=== PATIENT | male | born 1970 | race Two or more races ===

== ENCOUNTER 2024-12-18 10:52 | Inpatient (IN) | payer MEDICAID, OTHER ==
[~2024-12-18] VITALS: Ht 167.6 cm; Wt 96.7 kg
--- NOTE | 2024-12-18 11:16 | ED.PDOC ---
General HPI Comments HPI: Poor Historian. At home T-max 101.0. Patient did not take any antipyretics. 54y M who presents to the ED for chief complaint of urinary complaints. Pt has the following ED course; - pt states for the past 2 weeks, he has been having dysuria, fever and back pain and states last night, he noted blood in urine and came today for further evaluation - pt states 3 weeks prior, he was having generalized weakness and fever and states he went to urgent care for evaluation - pt states he was dx with UTI and placed on 1 week course of antibiotics - pt states he has finished his course of antibiotics and still having symptoms. - pt in the ED, noted to have heart rate of 117 and temp of 99.5 F - pt otherwise denies any other symptoms at this time past medical history: DM, HTN, HLD, thyroid past surgical history: R toes amputation medications: unknown allergies: nkda social history: denies tobacco use, denies Etoh use, denies drug use REVIEW OF SYSTEMS: CONSTITUTIONAL: Denies acute: diaphoresis, chills, HEAD: Denies acute: headache, photophobia Eyes: Denies acute: Double vision, vision loss, eye pain, eye discharge. EARS: Denies acute: tinnitus, hearing loss, ear discharge, ear pain, THROAT: Denies acute: sore throat, swelling, difficulty swallowing , pain with swallowing, change in voice. NECK: Denies acute: neck pain, neck swelling, stiff neck. HEART: Denies acute : chest pain, palpitations, LUNGS: Denies acute: SOB, wheezing, cough, hemoptysis ABDOMEN: Denies acute: abdominal pain, Nausea, Vomiting, diarrhea, melena , hematemesis, hematochezia SKIN: Denies acute: rash, redness, lesions, itchiness. EXTREMITIES: Denies acute: calf pain, numbness, tingling, weakness, denies pain in extremity. Neuro: Denies acute: focal neurological deficit, motor or sensory focal neurological deficit, tremors, seizure like activity, confusion, dizziness, change in mental status, loss of bowel or bladder function, cauda equina like symptoms. : Denies acute: flank pain, increase in urinary frequency. PSYCH: Denies acute: hallucination, suicidal ideation, homicidal ideation. PHYSICAL EXAM: General: no acute distress, awake and alert. Head: normocephalic, atraumatic. Neck: supple, trachea is midline, no swelling. Throat: Normal phonation. Eyes:, no erythema, no purulent discharge, no proptosis, no icterus. Heart: regular tachycardic, no significant murmur appreciated. Lungs: no apparent respiratory distress, Able to speak in full sentences. No wheezing, no rhonchi, no crackles. No stridors Clear to auscultation bilaterally. Abdomen: non tender to palpation, non distended, soft, no guarding, no rebound, + bowel sounds. Neuro: Awake, Alert, oriented to name, self, situation, follows commands GCS=15. Speech is normal. Skin: no petechia, no purpura, no cyanosis, slightly-pale, not jaundice. Lower extremities: --no - Pitting edema no deformity, no focal swelling, no calf TTP. Makes eye contact. moves all four extremities. Face: no apparent facial droop. No CVA tenderness to percussion bilaterally. Ambulating in the ED independently. No nuchal rigidity, Kernig's sign, Brudzinski's sign, no meningeal signs. ED COURSE: Chief Complaint: Urinary Time Seen by MD: 11:11 Reviewed notes: Nurses Notes, Allergies Allergies: Coded Allergies: NO KNOWN ALLERGIES (Unverified , 12/18/24) Home Meds Reported Medications Ferrous Sulfate (Ferosul) 325 Mg Tab, 1 TAB PO 12/18/24 Gabapentin (Gabapentin) 800 Mg Tab, 1 TAB PO TID 12/18/24 Aspirin (Aspirin Low Dose) 81 Mg Chw, 1 TAB PO DAILY 12/18/24 Cholecalciferol (VITAMIN D3) 5,000 Unit Cap, 1 CAP PO DAILY 12/18/24 Losartan Potassium (Losartan Potassium) 25 Mg Tab, 1 TAB PO DAILY 12/18/24 Levothyroxine Sodium (Levothyroxine Sodium) 175 Mcg Tab, 1 TAB PO DAILY 12/18/24 Cholecalciferol (Gnp D 1000) 1,000 Unit Cap, 1 CAP PO DAILY 12/18/24 Pantoprazole Sodium Sesquihydr (Pantoprazole Sodium) 40 Mg Tab, 1 TAB PO DAILY 12/18/24 Atorvastatin Calcium (ATORVASTATIN CALCIUM) 40 Mg Tab, 1 TAB PO DAILY 12/18/24 Information Source: Patient Mode of Arrival: Ambulatory Was a procedure done? Was a procedure done?: No Differential Diagnosis Kidney stone (Female): N/A Urinary Problem (Male): Bladder Outlet, Bladder Obstruction, Epididymitis, Prostatitis, Plelonephritis, Post op Complications, Renal Failure, Urethritis, Urinary Retention, Urolithiasis, UTI X-Ray, Labs, Meds, VS Vital Signs Date Time Temp Pulse Resp B/P (MAP) Pulse Ox O2 Delivery O2 Flow Rate FiO2 12/18/24 14:57 100.2 111 19 137/78 (97) 96 100.2 12/18/24 12:18 115 16 100 Room Air* 0 21 12/18/24 12:04 98.4 115 16 137/83 (101) 100 98.4 12/18/24 11:18 113 12/18/24 11:14 99.5 117 16 140/70 (93) 98 99.5 Lab Test 12/18/24 13:04 12/18/24 11:30 Range/Units Troponin I High Sensitivity 6 7 </=54 ng/L White Blood Count 17.7 H 4.4-10.8 10^3/uL Red Blood Count 3.85 L 4.5-5.90 10^6/uL Hemoglobin 11.9 L 13.5-17.5 g/dL Hematocrit 35.6 L 41.0-53.0 % Mean Corpuscular Volume 92.6 80.0-100.0 fL Mean Corpuscular Hemoglobin 30.9 28.0-32.0 pg Mean Corpuscular Hemoglobin Concent 33.4 32.0-36.0 g/dL Red Cell Distribution Width 13.3 11.8-14.3 % Platelet Count 267 140-450 10^3/uL Mean Platelet Volume 8.6 6.9-10.8 fL Neutrophils (%) (Auto) 78.8 37.0-80.0 % Lymphocytes (%) (Auto) 11.8 10.0-50.0 % Monocytes (%) (Auto) 8.1 0.0-12.0 % Eosinophils (%) (Auto) 0.8 0.0-7.0 % Basophils (%) (Auto) 0.5 0.0-2.0 % Neutrophils # (Auto) 14.0 H 1.6-8.6 10 ^3/uL Lymphocytes # (Auto) 2.1 0.4-5.4 10 ^3/uL Monocytes # (Auto) 1.4 H 0-1.3 10 ^3/uL Eosinophils # (Auto) 0.1 0-0.8 10 ^3/uL Basophils # (Auto) 0.1 0-0.2 10 ^3/uL Nucleated Red Blood Cells 0.0 % Erythrocyte Sedimentation Rate 17 0-20 mm/hr Urine Color Yellow Yellow Urine Clarity Turbid H Clear Urine pH 5.5 5.0-9.0 Urine Specific [place] 1.016 1.001-1.035 Urine Protein 1+ H Negative Urine Ketones Negative Negative Urine Blood 2+ H Negative /uL Urine Nitrite Negative Negative Urine Bilirubin Negative Negative Urine Urobilinogen Normal Negative mg/dL Urine Leukocyte Esterase 3+ Negative /uL Urine RBC 20 0 - 3 /hpf Urine WBC Clumps Present None Seen /hpf Urine Microscopic WBC 457 H 0-3 /HPF Urine Squamous Epithelial Cells Few <5 /hpf Urine Bacteria Few H None Seen /hpf Urine Sperm Present None Seen /hpf Urine Glucose Normal Normal mg/dL Sodium Level 135 L 136-145 mmol/L Potassium Level 3.9 3.5-5.1 mmol/L Chloride Level 103 98-107 mmol/L Carbon Dioxide Level 25 20-31 mmol/L Anion Gap 7 5-15 Blood Urea Nitrogen 32 H 9-23 mg/dL Creatinine 1.75 H 0.700-1.30 mg/dL Glomerular Filtration Rate Calc 46 >90 mL/min BUN/Creatinine Ratio 18.3 10.0-20.0 Serum Glucose 141 H 74-106 mg/dL Hemoglobin A1c < 3.8 <5.7 % A1C Lactic Acid Level 0.8 0.4-2.0 mmol/L Calcium Level 8.9 8.7-10.4 mg/dL Total Bilirubin 0.5 0.2-1.0 mg/dL Aspartate Amino Transferase (AST) 54 H 13-40 U/L Alanine Aminotransferase (ALT) 53 H 7-40 U/L Alkaline Phosphatase 178 H 46-116 U/L C-Reactive Protein High Sensitivity 19.16 H <1.0 mg/dL Total Protein 7.8 5.7-8.2 g/dL Albumin 4.6 3.2-4.8 g/dL Influenza Type A Antigen Negative Negative Influenza Type B Antigen Negative Negative SARS-CoV-2 Antigen (Rapid) Negative NEGATIVE Current Medications Medications (Trade) Dose Ordered Sig/To Route Start Time Stop Time Status Last Admin Sodium Chloride 1,000 ml @ 1,000 mls/hr Q1H ONCE IV 12/18/24 11:30 12/18/24 12:29 DC 12/18/24 12:10 Ceftriaxone Sodium 50 ml @ 100 mls/hr ONCE ONCE IV 12/18/24 12:45 12/18/24 13:14 DC 12/18/24 13:18 Doxycycline Monohydrate (Vibramycin Tablet) 100 mg ONCE ONCE PO 12/18/24 13:00 12/18/24 13:01 DC 12/18/24 13:18 [place] [id number] Ph: [phone] DIAGNOSTIC IMAGING Diagnostic Imaging Report : [id number] Signed PATIENT: SANIA MARTIN ACCT: [id number] UNIT: [id number] : 1970 LOC: ER ROOM / BED: / AGE / SEX: 54 / M ADM STATUS: REG ER SERVICE 1116 ORDERING PHYSICIAN: JEVON BURT DO PROCEDURE(s): CXRP - CHEST PORTABLE REASON: fever, dysurea, hematuria, tachy ORDER NUMBER(s): [id number], ACCESSION NUMBER(s): [id number] CHEST RADIOGRAPH Indication: fever, dysurea, hematuria, tachy Technique: Single frontal view of the chest was obtained COMPARISON: None FINDINGS: Lines and Tubes: None Lungs: Left basilar subsegmental atelectasis. Pleura: No effusion. No pneumothorax. Cardiomediastinal contours: Unremarkable Bones: Unremarkable IMPRESSION: No acute disease. ATED BY: TANNER BENDER MD DICTATED DATE/TIME: 12/18/241223 SIGNED BY: TANNER BENDER MD SIGNED DATE/TIME: 12/18/241223 CC: [place] [id number] Ph: [phone] DIAGNOSTIC IMAGING Diagnostic Imaging Report : [id number] Signed PATIENT: SANIA MARITN ACCT: [id number] UNIT: [id number] : 1970 LOC: ER ROOM / BED: / AGE / SEX: 54 / M ADM STATUS: REG ER SERVICE 1116 ORDERING PHYSICIAN: JEVON BURT DO PROCEDURE(s): ABPL - CT AB PEL WO CON-NO ORAL OR IV REASON: fever, dysurea, hematuria, tachy ORDER NUMBER(s): [id number], ACCESSION NUMBER(s): [id number] CT ABDOMEN AND PELVIS WITHOUT CONTRAST CLINICAL HISTORY: fever, dysurea, hematuria, tachy TECHNIQUE: Multiple contiguous axial images of the abdomen and pelvis without intravenous contrast. The images were reformatted degenerate coronal and sagittal reconstructions. All CT scans at this medical facility are performed using dose modulation techniques as appropriate to a performed exam including the following:Automated exposure control was utilized; adjustment of the MA and/or KV according to patient size; and use of iterative reconstruction technique. Radiation Dose Information: CT Dose: CTDI volume is 23 mGy. Dose-length product is 1371 mGy*cm Comparison: None FINDINGS: Evaluation of the abdomen and pelvis is limited without intravenous contrast. There is no evidence of nephrolithiasis or hydronephrosis. There is nonspecific bilateral perinephric fat stranding. There is no evidence of a ureteral calculus or hydroureter. The liver, gallbladder, pancreas, adrenal glands, and spleen appear within normal limits. There is no gross evidence of abdominal lymphadenopathy. There is no free fluid or free air. The stomach grossly appears unremarkable. The small and large bowel loops demonstrate normal caliber and distribution. The appendix is not seen in the right lower quadrant abdomen. There are no secondary signs of acute appendicitis. There are calcified atherosclerotic changes in the abdominal aorta. The IVC appears within normal limits. The bladder poorly filled and demonstrates marked circumferential wall thickening. There is fat stranding surrounding the bladder. The prostate gland appears mildly prominent in size.. There is no gross evidence of a pelvic mass. There is no free fluid collection. Lung bases are clear. There is no acute osseous abnormality. IMPRESSION: 1. Poorly filled bladder demonstrates marked circumferential wall thickening with surrounding fat stranding. The prostate gland is mildly prominent in size. Findings May relate to cystitis and prostatitis. Clinical and laboratory correlation is recommended. 2. There is no evidence of nephrolithiasis or hydronephrosis. There is nonspecific bilateral perinephric fat stranding. HS:Y ATED BY: DIMITRIS COLLIER MD DICTATED DATE/TIME: 12/18/241213 SIGNED BY: DIMITRIS COLLIER MD SIGNED DATE/TIME: 12/18/241213 CC: Time of 1ST Reevaluation: 21:43 Reevaluation 1ST: Improved Patient Education/Counseling: Diagnosis, Treatment Family Education/Counseling: No Family Present Comments Patient presented with the above HPI.--urinary symptoms/fever----workup was initiated. patient was found with the above mentioned diagnosis. the following medications were ordered: please refer to order lists of meds and tests obtained by myself Dr. Burt. Patient ED course and VS have been stabilized. Patient has been reassessed in the ED and remained in a stable condition. Pertinent incidental findings were discussed with the patient and/or family. Patient/family voices understanding and is agreeable with plan. Patient has been observed in the ED adequate length of time to insure improvement/stability. Escalation of care considered: Consideration of escalation to observation or admission Patient was ADMITTED to the medicine team for further evaluation and treatment of their presentation. Sepsis protocol was initiated with fluids and antibiotics. All the reports of any imaging studies that were ordered by myself were reviewed by myself. Departure 1 Departure Time of Disposition: 12:46 Impression: Primary Impression: Sepsis Additional Impressions: Cystitis Prostatitis Disposition: ADMITTED INPATIENT Admit to: Tele Condition: Guarded Discharged With: Self Critical Care Note Critical Care Time?: Yes (35 min-critical care time only) I personally scribed for JEVON BURT DO ([email or web address]) on 12/18/24 at 11:16. Electronically submitted by Samantha LEIVA). I personally scribed for JEVON BURT DO ([email or web address]) on 12/18/24 at 12:11. Electr onically submitted by Samantha Christine (MONSTER). I personally scribed for JEVON BURT DO ([email or web address]) on 12/18/24 at 12:45. El ectronically submitted by Samantha Christine (MONSTER). JEVON BURT DO Dec 18, 2024 11:16
--- NOTE | 2024-12-18 11:35 | ECG ---
[facility] Test Date: 2024-12-18 Test Time: 11:18:47 Pat Name: SANIA MARTIN Department: ER Room: Gender: M Software Implementation Project Manager: : 1970 Requested By: JEVON BURT Order Number: [id number] Reading MD: Ever Vallejo Measurements Intervals [place] Rate: 113 P: 53 CO: 139 QRS: 59 QRSD: 84 T: 49 QT: 300 QTc: 412 Interpretive Statements Sinus tachycardia Probable left atrial enlargement Abnormal R-wave progression, late transition ST elev, probable normal early repol pattern Electronically Signed On 12-18-2024 14:13:45 PDT by Ever Vallejo Please click the below link to view image of tracing.
[2024-12-18 12:00] LABS: Basophils # (auto) 0.1 10 ^3/uL (0-0.2); Basophils % (auto) 0.5 % (0.0-2.0); Eosinophils # (auto) 0.1 10 ^3/uL (0-0.8); Eosinophils % (auto) 0.8 % (0.0-7.0); Hematocrit 35.6 % (41.0-53.0); Hemoglobin 11.9 g/dL (13.5-17.5); Lymphocytes # (auto) 2.1 10 ^3/uL (0.4-5.4); Lymphocytes % (auto) 11.8 % (10.0-50.0); Mean Corpuscular Hemoglobin 30.9 pg (28.0-32.0); Mean Corpuscular Hgb Conc. 33.4 g/dL (32.0-36.0); Mean Corpuscular Volume 92.6 fL (80.0-100.0); Monocytes # (auto) 1.4 10 ^3/uL (0-1.3); Monocytes % (auto) 8.1 % (0.0-12.0); Neutrophils % (auto) 78.8 % (37.0-80.0); Platelet Count (auto) 267 10^3/uL (140-450); Red Blood Cells 3.85 10^6/uL (4.5-5.90); Red Cell Distribution Width 13.3 % (11.8-14.3); White Blood Cell 17.7 10^3/uL (4.4-10.8)
[2024-12-18 12:01] LABS: COVID19 ANTIGEN SOFIA FIA NEGATIVE (NEGATIVE); Rapid Influenza A Negative (Negative); Rapid Influenza B Negative (Negative)
[2024-12-18] MEDS: SODIUM CHLORIDE 0.9% 1,000 ML IV ONE (12:10)
[2024-12-18 12:15] LABS: Urine Bacteria FEW /hpf (None Seen); Urine Blood 2+ /uL (Negative); Urine Clarity Turbid (Clear); Urine Color Yellow (Yellow); Urine Protein, UAD 1+ (Negative); Urine Specific Gravity 1.016 (1.001-1.035); Urine Sperm PRESENT /hpf (None Seen); Urine Squamous Epithelial Cell FEW /hpf (<5); Urine Urobilinogen Normal (Negative); Urine WBC 457 /HPF (0-3); Urine WBC Clumps PRESENT /hpf (None Seen); Urine pH 5.5 (5.0-9.0)
--- NOTE | 2024-12-18 12:16 | DVH ---
CT ABDOMEN AND PELVIS WITHOUT CONTRAST CLINICAL HISTORY: fever, dysurea, hematuria, tachy TECHNIQUE: Multiple contiguous axial images of the abdomen and pelvis without intravenous contrast. T he images were reformatted degenerate coronal and sagittal reconstructions. All CT scans at this medical facility are performed using dose modulation techniques as appropriate t o a performed exam including the following:Automated exposure control was utilized; adjustment of the MA and/or KV according to patient size; and use of iterative reconstruction technique. Radiation Dose Information: CT Dose: CTDI volume is 23 mGy. Dose-length product is 1371 mGy*cm Comparison: None FINDINGS: Evaluation of the abdomen and pelvis is limited without intravenous contrast. There is no evidence of nephrolithiasis or hydronephrosis. There is nonspecific bilateral perinephric fat stranding. There is no evidence of a ureteral calculus or hydroureter. The liver, gallbladder, pancreas, adrenal glands, and spleen appear within normal limits. There is no gross evidence of abdominal lymphadenopathy. There is no free fluid or free air. The stomach grossly appears unremarkable. The small and large bowel loops demonstrate normal caliber and distribution. The appendix is not seen in the right lower quadrant abdomen. There are no seconda ry signs of acute appendicitis. There are calcified atherosclerotic changes in the abdominal aorta. The IVC appears within normal li mits. The bladder poorly filled and demonstrates marked circumferential wall thickening. There is fat stra nding surrounding the bladder. The prostate gland appears mildly prominent in size.. There is no rosalia ss evidence of a pelvic mass. There is no free fluid collection. Lung bases are clear. There is no acute osseous abnormality. IMPRESSION: 1. Poorly filled bladder demonstrates marked circumferential wall thickening with surrounding fat str anding. The prostate gland is mildly prominent in size. Findings May relate to cystitis and prostatit is. Clinical and laboratory correlation is recommended. 2. There is no evidence of nephrolithiasis or hydronephrosis. There is nonspecific bilateral perineph precious fat stranding. HS:Y
[2024-12-18 12:18] VITALS: PULSE 115; RESP 16; O2SAT 100
[2024-12-18 12:18] LABS: Albumin 4.6 g/dL (3.2-4.8); Anion Gap 7 (5-15); BUN/Creatinine Ratio 18.3 (10.0-20.0); Bilirubin, Total 0.5 mg/dL (0.2-1.0); Calcium 8.9 mg/dL (8.7-10.4); Carbon Dioxide 25 mmol/L (20-31); Chloride 103 mmol/L (98-107); Potassium 3.9 mmol/L (3.5-5.1); Total Protein 7.8 g/dL (5.7-8.2)
[2024-12-18 12:19] LABS: Alanine Aminotransferase 53 U/L (7-40); Alkaline Phosphatase 178 U/L (46-116); Aspartate Aminotransferase 54 U/L (13-40); Blood Urea Nitrogen 32 mg/dL (9-23); Glucose 141 mg/dL (74-106); Sodium 135 mmol/L (136-145)
--- NOTE | 2024-12-18 12:27 | DVH ---
CHEST RADIOGRAPH Indication: fever, dysurea, hematuria, tachy Technique: Single frontal view of the chest was obtained COMPARISON: None FINDINGS: Lines and Tubes: None Lungs: Left basilar subsegmental atelectasis. Pleura: No effusion. No pneumothorax. Cardiomediastinal contours: Unremarkable Bones: Unremarkable IMPRESSION: No acute disease.
[2024-12-18] MEDS: cefTRIAXone 1GM/50ML D5W 50 ML IV ONE (13:18)
[2024-12-18] MEDS: DOXYCYCLINE 100 MG TAB/CAP PO ONE (13:18)
[2024-12-18] MEDS: cefTRIAXone 1GM/50ML D5W 50 ML IV SCH (15:45)
[2024-12-18] MEDS ORDERED: ONDANSETRON HCL 4 MG/2 ML VIAL IV PRN (15:45)
[2024-12-18] MEDS ORDERED: MORPHINE SULFATE INJ 2 MG/ml SYRG IV PRN (15:45)
[2024-12-18] MEDS ORDERED: DEXTROSE (50%) 50ML SYRG IV PRN (15:45)
--- NOTE | 2024-12-18 16:12 | DVHHP2 ---
History of Present Illness Reason for Visit: Back pain History of Present Illness Rome Carreno is a 54-year-old male with past medical history of hypertension, hyperlipidemia, diabetes type 2, bulging discs, thyroid disease, and complete right toe amputation (all 5 digits) who presents to the ED with back pain. Patient reports that he has been having constipation as well and has not had a bowel movement for 4 days. Patient states that his back pain is 7/10 throbbing and constant. Patient reports that he was recently diagnosed 3 weeks ago with a UTI and given antibiotics. Patient reports that he had a fever last night of 1 0 to and took some Tylenol to help bring down the temperature. Patient also reports that he had all 5 toes amputated due his to his diabetes. Patient also reports that he smokes 3 cigarettes per day. 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 Patient denies chest pain, shortness of breath, chills, lightheadedness, weakness, dizziness, recent ingestion of spoiled food, nausea, vomiting, or diarrhea. Upon examination patient notably walking with discomfort in holding his hand on his back. Cardiovascular: HTN, hyperipidemia Endocrine: Diabetes, Hypothyroidism Past Medical History Bulging disc Past Surgical History: Other (Right amputation of all 5 toes) Family History: Cancer, DM, Other (Mom with diabetes and dad with brain cancer both ) Smoke: <1 pack per day ALCOHOL: none Drugs: None Lives: with Family Domestic Violence: Neg Review of Systems Constitutional: Yes: Fever Gastrointestinal: Constipation Musculoskeletal: back pain Allergies: Coded Allergies: NO KNOWN ALLERGIES (Unverified , 12/18/24) Exam Vital Signs Vital Signs Date Time Temp Pulse Resp B/P (MAP) Pulse Ox O2 Delivery O2 Flow Rate FiO2 12/18/24 14:57 100.2 111 19 137/78 (97) 96 100.2 12/18/24 12:18 Room Air* 0 21 General Appearance: Alert, Oriented X3, Cooperative, mild distress HEENT: Atraumatic, PERRLA, EOMI, Mucous membr. moist/pink Respiratory: Clear to auscultation, Normal air movement Cardiovascular: Normal S1, Normal S2, No murmurs Abdominal: Soft Neuro: Normal speech, Normal tone, Sensation intact Psych/Mental Status: Mental status NL, Mood NL Labs/Xrays Labs Test 12/18/24 13:04 12/18/24 11:30 Range/Units Troponin I High Sensitivity 6 </=54 ng/L White Blood Count 17.7 H 4.4-10.8 10^3/uL Red Blood Count 3.85 L 4.5-5.90 10^6/uL Hemoglobin 11.9 L 13.5-17.5 g/dL Hematocrit 35.6 L 41.0-53.0 % Mean Corpuscular Volume 92.6 80.0-100.0 fL Mean Corpuscular Hemoglobin 30.9 28.0-32.0 pg Mean Corpuscular Hemoglobin Concent 33.4 32.0-36.0 g/dL Red Cell Distribution Width 13.3 11.8-14.3 % Platelet Count 267 140-450 10^3/uL Mean Platelet Volume 8.6 6.9-10.8 fL Neutrophils (%) (Auto) 78.8 37.0-80.0 % Lymphocytes (%) (Auto) 11.8 10.0-50.0 % Monocytes (%) (Auto) 8.1 0.0-12.0 % Eosinophils (%) (Auto) 0.8 0.0-7.0 % Basophils (%) (Auto) 0.5 0.0-2.0 % Neutrophils # (Auto) 14.0 H 1.6-8.6 10 ^3/uL Lymphocytes # (Auto) 2.1 0.4-5.4 10 ^3/uL Monocytes # (Auto) 1.4 H 0-1.3 10 ^3/uL Eosinophils # (Auto) 0.1 0-0.8 10 ^3/uL Basophils # (Auto) 0.1 0-0.2 10 ^3/uL Nucleated Red Blood Cells 0.0 % Urine Color Yellow Yellow Urine Clarity Turbid H Clear Urine pH 5.5 5.0-9.0 Urine Specific [place] 1.016 1.001-1.035 Urine Protein 1+ H Negative Urine Ketones Negative Negative Urine Blood 2+ H Negative /uL Urine Nitrite Negative Negative Urine Bilirubin Negative Negative Urine Urobilinogen Normal Negative mg/dL Urine Leukocyte Esterase 3+ Negative /uL Urine RBC 20 0 - 3 /hpf Urine WBC Clumps Present None Seen /hpf Urine Microscopic WBC 457 H 0-3 /HPF Urine Squamous Epithelial Cells Few <5 /hpf Urine Bacteria Few H None Seen /hpf Urine Sperm Present None Seen /hpf Urine Glucose Normal Normal mg/dL Sodium Level 135 L 136-145 mmol/L Potassium Level 3.9 3.5-5.1 mmol/L Chloride Level 103 98-107 mmol/L Carbon Dioxide Level 25 20-31 mmol/L Anion Gap 7 5-15 Blood Urea Nitrogen 32 H 9-23 mg/dL Creatinine 1.75 H 0.700-1.30 mg/dL Glomerular Filtration Rate Calc 46 >90 mL/min BUN/Creatinine Ratio 18.3 10.0-20.0 Serum Glucose 141 H 74-106 mg/dL Lactic Acid Level 0.8 0.4-2.0 mmol/L Calcium Level 8.9 8.7-10.4 mg/dL Total Bilirubin 0.5 0.2-1.0 mg/dL Aspartate Amino Transferase (AST) 54 H 13-40 U/L Alanine Aminotransferase (ALT) 53 H 7-40 U/L Alkaline Phosphatase 178 H 46-116 U/L Total Protein 7.8 5.7-8.2 g/dL Albumin 4.6 3.2-4.8 g/dL Influenza Type A Antigen Negative Negative Influenza Type B Antigen Negative Negative SARS-CoV-2 Antigen (Rapid) Negative NEGATIVE CHEST RADIOGRAPH Indication: fever, dysurea, hematuria, tachy Technique: Single frontal view of the chest was obtained COMPARISON: None FINDINGS: Lines and Tubes: None Lungs: Left basilar subsegmental atelectasis. Pleura: No effusion. No pneumothorax. Cardiomediastinal contours: Unremarkable Bones: Unremarkable IMPRESSION: No acute disease. CT ABDOMEN AND PELVIS WITHOUT CONTRAST CLINICAL HISTORY: fever, dysurea, hematuria, tachy TECHNIQUE: Multiple contiguous axial images of the abdomen and pelvis without intravenous contrast. The images were reformatted degenerate coronal and sagittal reconstructions. All CT scans at this medical facility are performed using dose modulation techniques as appropriate to a performed exam including the following:Automated exposure control was utilized; adjustment of the MA and/or KV according to patient size; and use of iterative reconstruction technique. Radiation Dose Information: CT Dose: CTDI volume is 23 mGy. Dose-length product is 1371 mGy*cm Comparison: None FINDINGS: Evaluation of the abdomen and pelvis is limited without intravenous contrast. There is no evidence of nephrolithiasis or hydronephrosis. There is nonspecific bilateral perinephric fat stranding. There is no evidence of a ureteral calculus or hydroureter. The liver, gallbladder, pancreas, adrenal glands, and spleen appear within normal limits. There is no gross evidence of abdominal lymphadenopathy. There is no free fluid or free air. The stomach grossly appears unremarkable. The small and large bowel loops demonstrate normal caliber and distribution. The appendix is not seen in the right lower quadrant abdomen. There are no secondary signs of acute appendicitis. There are calcified atherosclerotic changes in the abdominal aorta. The IVC appears within normal limits. The bladder poorly filled and demonstrates marked circumferential wall thickening. There is fat stranding surrounding the bladder. The prostate gland appears mildly prominent in size.. There is no gross evidence of a pelvic mass. There is no free fluid collection. Lung bases are clear. There is no acute osseous abnormality. IMPRESSION: 1. Poorly filled bladder demonstrates marked circumferential wall thickening with surrounding fat stranding. The prostate gland is mildly prominent in size. Findings May relate to cystitis and prostatitis. Clinical and laboratory correlation is recommended. 2. There is no evidence of nephrolithiasis or hydronephrosis. There is nonspecific bilateral perinephric fat stranding. Assessment/Plan Assessment/Plan Assessment Acute cystitis Leukocytosis likely due to acute cystitis Mild anemia Transaminitis Azotemia Diabetes type 2 Tobacco use History of hypertension History of hyperlipidemia History of bulging disc History of hypothyroidism History of right amputation of all 5 toes Plan Admit to [facility] UA CT abdomen and pelvis Flu negative COVID negative Doxycycline given ED IV antibiotics-ceftriaxone NS 1 L given ED Troponin negative x2 EKG Chest x-ray Blood cultures Lactic Bowel regimen Hemoglobin A1c ISS and Accu-Cheks Urine culture ESR CRP PSA X-ray lumbar spine Counseled patient on tobacco cessation Home medications reconciled Discussed plan of care with patient and nurse DVT prophylaxis not indicated patient ambulating PUD prophylaxis not indicated patient has no history of GERD or GI bleed Plan discussed with: Patient My Orders Orders - PIERRE MULLEN [employer] Procedure Category Date Status Time Psa Total+% Free LAB 12/18/24 Logged 15:01 Ceftriaxone Ivpb PHA 12/18/24 Verified Rocephin 15:45 Hemoglobin A1c LAB 12/18/24 Verified 15:43 Glucose Blood PHA 12/18/24 Verified (Accu-Chek Comfort 17:00 Mild Sliding Scale PHA 12/18/24 Verified 17:00 Dextrose 50% Syringe PHA 12/18/24 Verified 15:45 Lumbar Spine 3 View XY 12/18/24 Verified 15:43 Admit ADMIT 12/18/24 Verified 15:43 Allergies JESUS ALBERTO 12/18/24 Verified 15:43 Code Status CODE 12/18/24 Verified 15:43 Hydrocodone-Acet PHA 12/18/24 Verified 5/325mg Tab ([place] 15:45 Ondansetron Hcl PHA 12/18/24 Verified (Zofran) 15:45 Complete Blood Count LAB 12/19/24 Verified 04:00 Comprehensive LAB 12/19/24 Verified Metabolic Panel 04:00 Cardiac DIET 12/18/24 Verified Diet-2gna,Lofat,Lochol Dinner Acetaminophen Tablet PHA 12/18/24 Verified (Tylenol Tablet) 15:45 Morphine Sulfate PHA 12/18/24 Verified Injection 15:45 Date of Service: Dec 18, 2024 Billing Provider: PIERRE MULLEN Common Visit Codes: [id number] INP/OBS CARE (HIGH) PIERRE MULLEN Dec 18, 2024 16:12
[2024-12-18] MEDS ORDERED: CHOL50007 PO (16:14)
[2024-12-18] MEDS ORDERED: ATOR40TA52 PO (16:14)
[2024-12-18] MEDS ORDERED: FERR325T20 PO (16:14)
[2024-12-18] MEDS ORDERED: LOS25T PO (16:14)
[2024-12-18] MEDS ORDERED: PANT40T PO (16:14)
[2024-12-18] MEDS ORDERED: GABA800T97 PO (16:14)
[2024-12-18] MEDS ORDERED: LEVO175T4 PO (16:14)
[2024-12-18] MEDS ORDERED: [UNRECOGNIZED DRUG - CODE] PO (16:14)
[2024-12-18] MEDS ORDERED: ASPI81CH59 PO (16:14)
[2024-12-18] MEDS: DOCUSATE SOD 100 MG CAP PO SCH (16:15)
[2024-12-18] MEDS: POLYETHYLENE GLYCOL 17 GM PWDR PO SCH (16:15)
[2024-12-18] MEDS ORDERED: CYCLOBENZAPRINE HCL 10 MG TAB PO PRN (16:15)
--- NOTE | 2024-12-18 16:28 | DVH ---
EXAM: XY LUMBAR SPINE 3 VIEW INDICATION: low back pain COMPARISON: None TECHNIQUE: 2 views of the lumbar spine were obtained. Findings: There is no evidence of an acute fracture, spondylolysis, or spondylolisthesis. The vertebral body heights and disc spaces are well-maintained. No blastic or lytic lesions are appreciated. No radiopaque foreign bodies. No superficial soft tissue abnormalities. Impression: 1. No acute osseous abnormality.
[2024-12-18 16:40] VITALS: BP 165/85; PULSE 120; RESP 16; TEMP 100; O2SAT 97
[2024-12-18] MEDS: ACETAMINOPHEN 325 MG TAB PO PRN (16:40)
[2024-12-18] MEDS: SODIUM CHLORIDE 0.9% 1,000 ML IV SCH (16:48)
[2024-12-18] MEDS: ACCU-CHEK COMFORT CURVE STRIP VI SCH (16:59)
[2024-12-18] MEDS: InsuLIN REG 1unit/0.01ml Soln (100units/ml) SC SCH (16:59)
[2024-12-18 17:26] VITALS: O2SAT 95
[2024-12-18 18:22] VITALS: BP 110/79; PULSE 89; TEMP 97.9
[2024-12-18] MEDS: FERROUS SULFATE 325mg EC TAB PO SCH (18:24)
[2024-12-18 19:48] LABS: Erythrocyte Sedimentation Rate 17 mm/hr (0-20)
[2024-12-18 20:29] VITALS: BP 118/58; PULSE 94; RESP 16; TEMP 98.2; O2SAT 96
[2024-12-18] MEDS: HYDROcodone-ACET 5/325MG TAB PO PRN (20:34)
[2024-12-18] MEDS: GABAPENTIN 400 MG CAP PO SCH (21:25)
[2024-12-18 22:18] VITALS: BP 108/53; PULSE 92; RESP 18; TEMP 98.5; O2SAT 97
[2024-12-19] VITALS (9 sets, daily range): BP systolic 117–159; BP diastolic 61–86; PULSE 89–102; RESP 16–18; TEMP 97.5–99.3; O2SAT 96–99
[2024-12-19] MEDS: LEVOTHYROXINE SODIUM 100 MCG TAB PO SCH (06:28)
[2024-12-19] MEDS: LEVOTHYROXINE SODIUM 25 MCG TAB PO SCH (06:28)
[2024-12-19 06:36] LABS: Basophils # (auto) 0 10 ^3/uL (0-0.2); Basophils % (auto) 0.5 % (0.0-2.0); Eosinophils # (auto) 0.3 10 ^3/uL (0-0.8); Eosinophils % (auto) 3.6 % (0.0-7.0); Hematocrit 30.7 % (41.0-53.0); Hemoglobin 10.4 g/dL (13.5-17.5); Lymphocytes # (auto) 1.3 10 ^3/uL (0.4-5.4); Lymphocytes % (auto) 14.2 % (10.0-50.0); Mean Corpuscular Hgb Conc. 33.8 g/dL (32.0-36.0); Mean Corpuscular Volume 91.5 fL (80.0-100.0); Monocytes # (auto) 0.8 10 ^3/uL (0-1.3); Monocytes % (auto) 9.1 % (0.0-12.0); Neutrophils # (auto) 6.7 10 ^3/uL (1.6-8.6); Neutrophils % (auto) 72.6 % (37.0-80.0); Platelet Count (auto) 231 10^3/uL (140-450); Red Blood Cells 3.36 10^6/uL (4.5-5.90); White Blood Cell 9.2 10^3/uL (4.4-10.8)
[2024-12-19 06:48] LABS: Alanine Aminotransferase 40 U/L (7-40); Albumin 3.8 g/dL (3.2-4.8); Alkaline Phosphatase 151 U/L (46-116); Anion Gap 9 (5-15); Aspartate Aminotransferase 31 U/L (13-40); BUN/Creatinine Ratio 18.9 (10.0-20.0); Bilirubin, Total 0.3 mg/dL (0.2-1.0); Blood Urea Nitrogen 25 mg/dL (9-23); Calcium 8.2 mg/dL (8.7-10.4); Carbon Dioxide 24 mmol/L (20-31); Chloride 105 mmol/L (98-107); Glucose 104 mg/dL (74-106); Sodium 138 mmol/L (136-145); Total Protein 6.5 g/dL (5.7-8.2)
[2024-12-19] MEDS: CHOLECALCIFEROL (VITD3) 1,000UNIT=25mCg TAB PO SCH (09:25)
[2024-12-19] MEDS: ASPirin 81 mg TAB PO SCH (09:27)
[2024-12-19] MEDS: PANTOPRAZOLE 40 MG TAB PO SCH (09:29)
[2024-12-19] MEDS: LOSARTAN POTASSIUM 25 MG TAB PO SCH (09:29)
[2024-12-19] MEDS ORDERED: CHOLECALCIFEROL (VITD3) 1,000UNIT=25mCg TAB PO SCH (10:00)
[2024-12-19] MEDS ORDERED: ASPirin 81 mg TAB PO SCH (10:00)
[2024-12-19] MEDS ORDERED: PATIENTS OWN MEDICATION (Atorvastatin Calcium 1 TAB) PO SCH (10:00)
[2024-12-19] MEDS: NICOTINE 14 MG/24HR TOPICAL PATCH TD ONE (13:30)
--- NOTE | 2024-12-19 22:06 | DVHPNRES ---
Progress Note Date Seen: Dec 19, 2024 Resident Creating Document: NIRMALA HOBBS RESIDENT Has the PT tested + for MRSA If YES, has PT been informed?: No Medical Necessity Reason Pt with a Central, PICC or Fol: No Subjective Review of Systems Rome Carreno is a 54-year-old male with a past medical history significant for hypertension, hyperlipidemia, diabetes type 2, bulging discs, thyroid disease, and complete right toe amputation (all 5 digits). He presents to the ED with back pain that has been throbbing and constant. The pain has worsened over the past 4 days. He also reports new-onset constipation and has had a fever for 1-2 days, which was not associated with chills or night sweats. The patient was recently diagnosed with a UTI 3 weeks ago, for which he was started on antibiotics, but still reports persistent hematuria. He has also been smoking 3 cigarettes per day and has a history of poor appetite and intermittent dizziness. He denies any recent ingestion of spoiled food, nausea, vomiting, or diarrhea. Additionally, he reports a recent fever, for which he took Tylenol. 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 Past Medical History: Hypertension Hyperlipidemia Type 2 Diabetes Bulging discs Thyroid disease Past Surgical History: Right toe amputation (all 5 digits) Family History: Cancer, Diabetes Mellitus Mother (with diabetes and due to brain cancer) Social History: Smoker: 1 pack per day Alcohol: None Illicit Drugs: Denies Occupation: Medical crude oil driver Objective vital signs Vital Sign Date Time Temp Pulse Resp B/P (MAP) Pulse Ox O2 Delivery O2 Flow Rate FiO2 12/19/24 21:00 99.3 102 18 137/74 (95) 96 99.3 12/19/24 08:00 Room Air* 0 21 Total Intake and Output 12/18/24 12/18/24 12/19/24 15:00 23:00 07:00 Intake Total 1050 ml 1400 ml Balance 1050 ml 1400 ml medications Current Medications Medications Dose Ordered Sig/To Route Start Time Stop Time Status Last Admin Dose Admin Ceftriaxone Sodium 50 ml @ 100 mls/hr DAILY@09 IV 12/18/24 15:45 12/19/24 09:24 100 MLS/HR Diagnostic Test (Pha) 1 strip ACHS 12/18/24 17:00 12/19/24 21:49 1 STRIP Insulin Human Regular ACHS SC 12/18/24 17:00 12/19/24 21:51 4 UNITS Dextrose 50 ml UD PRN IV 12/18/24 15:45 Acetaminophen/ Hydrocodone Bitart 1 tab Q4HP PRN PO 12/18/24 15:45 12/19/24 18:24 1 TAB Ondansetron HCl 4 mg Q4HP PRN IV 12/18/24 15:45 Acetaminophen 650 mg Q6HP PRN PO 12/18/24 15:45 12/19/24 20:12 650 MG Morphine Sulfate 2 mg Q4HPRN PRN IV 12/18/24 15:45 Polyethylene Glycol 17 gm DAILY PO 12/18/24 16:15 12/19/24 09:29 17 GM Docusate Sodium 100 mg BID PO 12/18/24 16:15 12/19/24 21:49 100 MG Cyclobenzaprine HCl 5 mg Q8HPRN PRN PO 12/18/24 16:15 Aspirin 81 mg DAILY PO 12/19/24 10:00 12/19/24 09:27 81 MG Cholecalciferol 1,000 unit DAILY PO 12/19/24 10:00 12/19/24 09:25 1,000 UNIT Gabapentin 800 mg TID PO 12/18/24 22:00 12/19/24 21:49 800 MG Levothyroxine Sodium 100 mcg QAM PO 12/19/24 07:00 12/19/24 06:28 100 MCG Ferrous Sulfate 325 mg TIDWM PO 12/18/24 18:00 12/19/24 18:19 325 MG Losartan Potassium 25 mg DAILY PO 12/19/24 10:00 12/19/24 09:29 25 MG Pantoprazole Sodium 40 mg DAILY PO 12/19/24 10:00 12/19/24 09:29 40 MG Sodium Chloride 1,000 ml @ 100 mls/hr Q10H IV 12/18/24 16:30 12/19/24 21:55 100 MLS/HR Levothyroxine Sodium 75 mcg QAM PO 12/19/24 07:00 12/19/24 06:28 75 MCG Nicotine 1 patch DAILY TD 12/20/24 10:00 Examination General Appearance: Alert, Oriented X3, Cooperative, No acute distress HEENT: Atraumatic, PERRLA, EOMI, Mucous membrane moist/pink Respiratory: Clear to auscultation, Normal air movement Cardiovascular: Regular rate, Normal S1, Normal S2, No murmurs, no chest wall tenderness Abdominal: Mild tenderness at deep palpation in the lower abdomen Extremities: No clubbing, No cyanosis, No edema. Amputated right toe/s Skin: No rashes, No breakdown, No significant lesion Neuro: Normal speech, Strength at 5/5 X4 ext, Normal tone, Sensation intact, grossly intact cranial nerves. Psych/Mental Status: Mental status NL, Mood NL laboratory and microbiology Laboratory Tests 12/19/24 05:48 Test 12/19/24 05:48 Range/Units Serum Glucose 104 74-106 mg/dL Microbiology Date/Time Source Procedure Growth Status 12/18/24 11:31 Blood Blood Culture - Preliminary NO GROWTH AFTER 24 HOURS OF INCUBATION. Resulted 12/18/24 11:30 Voided Urine Urine Culture - Preliminary Resulted Labs and/or images reviewed: Labs reviewed by me, Image(s) reviewed by me Problem List/Assessment/Plan Problem List/Assessment/Plan #Sepsis due to cystitis and prostatitis #Marked circumferential wall thickening with surrounding fat stranding; urinary bladder imaging #Mild anemia normocytic normochromic #NEHAL due to VMN/cystitis #Transaminitis #Diabetes type 2 #Tobacco use disorder #Hypertension #Hyperlipidemia #Hypothyroidism Med/Surg Aspirin home med Ceftriaxone IV IV fluids 100 cc/h Vitamin D home med Cyclobenzaprine Iron PO home med Gabapentin 800 mg TID home med Levothyroxine 175 mcg Losartan 25 mg home med Counseled on tobacco use cessation for 17 minutes; started on Nicotine patch Constipation management ISS DVT Prophylaxis: Enoxaparin 40 mg PUD Prophylaxis: Protonix Goals of care discussed with the patient for 20 minutes; full code Case discussed with Dr. Connors Plan discussed with: Patient, Other (Nurse) Addendum Addendum Addendum I was physically present for the phillips portions of the service provided to patient by THE RESIDENT. I have reviewed the documentation, discussed the case with resident and agree with the resident's documentation except as noted. Also the patient's clinical case was discussed with the patient's nurse. This medical document was created using an electronic medical record system with computerized dictation system. Although this document has been carefully reviewed, there might still be some phonetic and typographical errors. These areas are purely typographical due to imperfections of the software programs, and do not reflect any compromise in the patient's medical care. Late signature. Date of Service: Dec 19, 2024 Billing Provider: DEACON CONNORS MD Common Visit Codes: [id number] INP/OBS CARE(HIGH) Secondary Visit Codes: [id number] CHNG SMOKING >10MIN (Counseled on tobacco use cessation for 17 minutes), [id number] CARE PLAN 30 MINUTES (20 minutes) NIRMALA HOBBS RESIDENT Dec 19, 2024 22:06 DEACON CONNORS MD Dec 20, 2024 10:44
[2024-12-20 01:00] VITALS: BP 157/83; PULSE 87; RESP 17; TEMP 98.2; O2SAT 99
[2024-12-20 08:07] LABS: PSA Free 0.07 ng/mL; Prostate Specific Antigen 1.7 ng/mL (0.0-4.0)
[2024-12-20] MEDS: NICOTINE 14 MG/24HR TOPICAL PATCH TD SCH (08:45)
[2024-12-20] MEDS: ENOXAPARIN SOD 40 MG/0.4 ML SYRINGE SC SCH (08:48)
[2024-12-20 08:59] VITALS: BP 146/81; PULSE 89; RESP 18; TEMP 98.5; O2SAT 97
[2024-12-20] MEDS ORDERED: CIPR-173 PO (12:03)
[2024-12-20] MEDS: IBUPROFEN 800 MG TAB PO ONE (12:15)
[2024-12-20 12:35] VITALS: BP 135/84; PULSE 72; RESP 18; TEMP 97.7; O2SAT 96
--- NOTE | 2024-12-20 16:15 | DVHDSRES ---
Discharge Summary Date of Admission Resident Creating Document: NIRMALA HOBBS RESIDENT Dec 18, 2024 at 15:43 Date of Discharge: Dec 20, 2024 Admitting Diagnosis #Sepsis due to cystitis and prostatitis Labs/Diagnostic Data: Laboratory Results Test 12/20/24 11:56 12/19/24 05:48 12/18/24 18:36 12/18/24 13:04 POC Glucose 168 mg/dl (70-106) White Blood Count 9.2 10^3/uL (4.4-10.8) Red Blood Count 3.36 10^6/uL (4.5-5.90) Hemoglobin 10.4 g/dL (13.5-17.5) Hematocrit 30.7 % (41.0-53.0) Mean Corpuscular Volume 91.5 fL (80.0-100.0) Mean Corpuscular Hemoglobin 31.0 pg (28.0-32.0) Mean Corpuscular Hemoglobin Concent 33.8 g/dL (32.0-36.0) Red Cell Distribution Width 13.0 % (11.8-14.3) Platelet Count 231 10^3/uL (140-450) Mean Platelet Volume 8.6 fL (6.9-10.8) Neutrophils (%) (Auto) 72.6 % (37.0-80.0) Lymphocytes (%) (Auto) 14.2 % (10.0-50.0) Monocytes (%) (Auto) 9.1 % (0.0-12.0) Eosinophils (%) (Auto) 3.6 % (0.0-7.0) Basophils (%) (Auto) 0.5 % (0.0-2.0) Neutrophils # (Auto) 6.7 10 ^3/uL (1.6-8.6) Lymphocytes # (Auto) 1.3 10 ^3/uL (0.4-5.4) Monocytes # (Auto) 0.8 10 ^3/uL (0-1.3) Eosinophils # (Auto) 0.3 10 ^3/uL (0-0.8) Basophils # (Auto) 0 10 ^3/uL (0-0.2) Nucleated Red Blood Cells 0.0 % Sodium Level 138 mmol/L (136-145) Potassium Level 4.0 mmol/L (3.5-5.1) Chloride Level 105 mmol/L (98-107) Carbon Dioxide Level 24 mmol/L (20-31) Anion Gap 9 (5-15) Blood Urea Nitrogen 25 mg/dL (9-23) Creatinine 1.32 mg/dL (0.700-1.30) Glomerular Filtration Rate Calc 64 mL/min (>90) BUN/Creatinine Ratio 18.9 (10.0-20.0) Serum Glucose 104 mg/dL (74-106) Calcium Level 8.2 mg/dL (8.7-10.4) Total Bilirubin 0.3 mg/dL (0.2-1.0) Aspartate Amino Transferase (AST) 31 U/L (13-40) Alanine Aminotransferase (ALT) 40 U/L (7-40) Alkaline Phosphatase 151 U/L (46-116) Total Protein 6.5 g/dL (5.7-8.2) Albumin 3.8 g/dL (3.2-4.8) Free Prostate Specific Antigen 0.07 ng/mL (N/A) Percent Free Prostate Specific Ag 4.1 % (.) Prostate Specific Antigen Total 1.7 ng/mL (0.0-4.0) Troponin I High Sensitivity 6 ng/L (</=54) Test 12/18/24 11:30 Erythrocyte Sedimentation Rate 17 mm/hr (0-20) Urine Color Yellow (Yellow) Urine Clarity Turbid (Clear) Urine pH 5.5 (5.0-9.0) Urine Specific [place] 1.016 (1.001-1.035) Urine Protein 1+ (Negative) Urine Ketones Negative (Negative) Urine Blood 2+ /uL (Negative) Urine Nitrite Negative (Negative) Urine Bilirubin Negative (Negative) Urine Urobilinogen Normal mg/dL (Negative) Urine Leukocyte Esterase 3+ /uL (Negative) Urine RBC 20 /hpf (0 - 3) Urine WBC Clumps Present /hpf (None Seen) Urine Microscopic WBC 457 /HPF (0-3) Urine Squamous Epithelial Cells Few /hpf (<5) Urine Bacteria Few /hpf (None Seen) Urine Sperm Present /hpf (None Seen) Urine Glucose Normal mg/dL (Normal) Hemoglobin A1c < 3.8 % A1C (<5.7) Lactic Acid Level 0.8 mmol/L (0.4-2.0) C-Reactive Protein High Sensitivity 19.16 mg/dL (<1.0) Influenza Type A Antigen Negative (Negative) Influenza Type B Antigen Negative (Negative) SARS-CoV-2 Antigen (Rapid) Negative (NEGATIVE) Other Laboratory Tests 12/19/24 05:48 Brief Hx & Hospital Course: This is a 54-year-old male with PMHx of hypertension, hyperlipidemia, type 2 diabetes, hypothyroidism, tobacco use disorder, and prior right toe amputation who presented with progressive lower back pain and subjective fevers. Initial workup revealed a UTI with imaging suggestive of cystitis and prostatitis, and circumferential bladder wall thickening with surrounding fat stranding. Labs showed mild normocytic normochromic anemia and NEHAL thought secondary to volume depletion and infection. Blood cultures showed no growth, and urine culture was positive for e coli multisensitive He was treated with IV fluids, ceftriaxone, and supportive care. His renal function improved with hydration. He was counseled on smoking cessation and started on a nicotine patch. Constipation and back pain were managed symptomatically during the hospitalization. Discharge Condition: Stable Discharge Medications: Ciprofloxacin 500 mg PO BID for 4 weeks (for prostatitis) Continue home meds: aspirin, losartan, levothyroxine, vitamin D, iron, gabapentin Follow-up: [facility] General Appearance: Alert, Oriented X3, Cooperative, No acute distress HEENT: Atraumatic, PERRLA, EOMI, Mucous membrane moist/pink Respiratory: Clear to auscultation, Normal air movement Cardiovascular: Regular rate, Normal S1, Normal S2, No murmurs, no chest wall tenderness Abdominal: Mild tenderness at deep palpation in the lower abdomen Extremities: No clubbing, No cyanosis, No edema. Amputated right toe/s Skin: No rashes, No breakdown, No significant lesion Neuro: Normal speech, Strength at 5/5 X4 ext, Normal tone, Sensation intact, grossly intact cranial nerves. Psych/Mental Status: Mental status NL, Mood NL Case discussed with Dr Bai Operations or Procedures CT ABDOMEN AND PELVIS WITHOUT CONTRAST CLINICAL HISTORY: fever, dysurea, hematuria, tachy TECHNIQUE: Multiple contiguous axial images of the abdomen and pelvis without intravenous contrast. The images were reformatted degenerate coronal and sagittal reconstructions. All CT scans at this medical facility are performed using dose modulation techniques as appropriate to a performed exam including the following:Automated exposure control was utilized; adjustment of the MA and/or KV according to patient size; and use of iterative reconstruction technique. Radiation Dose Information: CT Dose: CTDI volume is 23 mGy. Dose-length product is 1371 mGy*cm Comparison: None FINDINGS: Evaluation of the abdomen and pelvis is limited without intravenous contrast. There is no evidence of nephrolithiasis or hydronephrosis. There is nonspecific bilateral perinephric fat stranding. There is no evidence of a ureteral calculus or hydroureter. The liver, gallbladder, pancreas, adrenal glands, and spleen appear within normal limits. There is no gross evidence of abdominal lymphadenopathy. There is no free fluid or free air. The stomach grossly appears unremarkable. The small and large bowel loops demonstrate normal caliber and distribution. The appendix is not seen in the right lower quadrant abdomen. There are no secondary signs of acute appendicitis. There are calcified atherosclerotic changes in the abdominal aorta. The IVC appears within normal limits. The bladder poorly filled and demonstrates marked circumferential wall thickening. There is fat stranding surrounding the bladder. The prostate gland appears mildly prominent in size.. There is no gross evidence of a pelvic mass. There is no free fluid collection. Lung bases are clear. There is no acute osseous abnormality. IMPRESSION: 1. Poorly filled bladder demonstrates marked circumferential wall thickening with surrounding fat stranding. The prostate gland is mildly prominent in size. Findings May relate to cystitis and prostatitis. Clinical and laboratory correlation is recommended. 2. There is no evidence of nephrolithiasis or hydronephrosis. There is nonspecific bilateral perinephric fat stranding. Condition at Discharge: Stable Final Diagnosis/Problems List #Sepsis due to cystitis and prostatitis #Marked circumferential wall thickening with surrounding fat stranding; urinary bladder imaging #Mild anemia normocytic normochromic #NEHAL due to VMN/cystitis resolved #Transaminitis #Diabetes type 2 #Tobacco use disorder #Hypertension #Hyperlipidemia #Hypothyroidism Discharge Disposition: Home Discharge Instruct/Medications Diet: Consistent carbohydrate, Cardiac 2g Na,low cholest Activity: Light activity Follow Up/Referral: [facility] Medications: see prescritpion Discharge Statement: "Patient was advised to return to the ER or call 911 if any headaches, dizziness, shortness of breath, chest pain, abdominal pain, bleeding, fevers, or worsening of medical condition. Patient was counseled about treatment plan, medications, possible side effects, patientverbalized understanding. All questions were answered to the best of my ability. This discharge took greater then 30 minutes in planning, reviewing documentation, counseling the patient, and discussing with other team members." ASSESSMENT ASSESSMENT Assessment cystitis and prostatits Date of Service: Dec 20, 2024 Billing Provider: JENNIFER BAI MD Common Visit Codes: 79645-UFY/OBS DISCH DAY >30min NIRMALA HOBBS RESIDENT Dec 20, 2024 16:15 JENNIFER BAI MD Dec 20, 2024 22:35
== END 2024-12-20 14:45 | disposition home or self-care (01) | DRG 720 ==
LOC: ER 10:52 → OVERFLOW 15:43 → WEST WING 12-19 02:14
PROVIDERS: ADMIT Internal Medicine; ATTEND Emergency Medicine
DX: A41.9 Sepsis, unspecified organism (principal); N17.0 Acute kidney failure with tubular necrosis; D64.9 Anemia, unspecified; E03.9 Hypothyroidism, unspecified; E11.9 Type 2 diabetes mellitus without complications; E78.5 Hyperlipidemia, unspecified; M54.50 Low back pain, unspecified; M54.9 Dorsalgia, unspecified; E86.9 Volume depletion, unspecified; K59.00 Constipation, unspecified; F17.210 Nicotine dependence, cigarettes, uncomplicated; R74.01 Elevation of levels of liver transaminase levels; N30.00 Acute cystitis without hematuria; Z20.822 Contact with and (suspected) exposure to COVID-19; R79.89 Other specified abnormal findings of blood chemistry; N41.9 Inflammatory disease of prostate, unspecified; I10 Essential (primary) hypertension; Z79.82 Long term (current) use of aspirin; Z79.899 Other long term (current) drug therapy; Z80.8 Family history of malignant neoplasm of other organs or systems; Z83.3 Family history of diabetes mellitus; Z71.6 Tobacco abuse counseling
CPT/HCPCS: 36415; 71045; 72100; 74176; 80053; 81001; 82962; 83036; 83605; 84154; 84484; 85025; 85652; 86141; 87040; 87086; 87088; 87186; 87426; 87804; 93005; 96361; 96365; 99291; G0378; J1815